=== PATIENT | female | born 1970 | race Caucasian/White ===

== ENCOUNTER 2017-11-16 07:44 | Outpatient (CLI) | payer OTHER | END 2017-11-16 07:49 | disposition home or self-care (01) | LOC: SONOGRAMA 07:44 | DX: E04.2 Nontoxic multinodular goiter (principal) ==

== ENCOUNTER 2021-02-17 07:13 | Outpatient (CLI) | payer OTHER | END 2021-02-17 07:31 | disposition home or self-care (01) | LOC: MRI 07:13 | PROVIDERS: ATTEND Psychiatry & Neurology Pain Medicine | DX: M54.5 Low back pain (principal); M54.10 Radiculopathy, site unspecified; R20.0 Anesthesia of skin; M25.562 Pain in left knee; F40.240 Claustrophobia | CPT/HCPCS: 72141; 72148; 73721 ==

== ENCOUNTER 2021-09-20 07:55 | Outpatient (CLI) | payer OTHER | END 2021-09-20 07:58 | disposition home or self-care (01) | LOC: SONOGRAMA 07:55 | PROVIDERS: ATTEND Pathology Anatomic Pathology & Clinical Pathology | DX: E04.1 Nontoxic single thyroid nodule (principal) ==

== ENCOUNTER 2021-09-24 07:21 | Outpatient (CLI) | payer OTHER | END 2021-09-24 08:00 | disposition home or self-care (01) | LOC: NUCLEAR 07:21 | DX: I20.9 Angina pectoris, unspecified (principal); I48.0 Paroxysmal atrial fibrillation; G47.33 Obstructive sleep apnea (adult) (pediatric); I70.218 Atherosclerosis of native arteries of extremities with intermittent claudication, other extremity; E66.01 Morbid (severe) obesity due to excess calories; E11.59 Type 2 diabetes mellitus with other circulatory complications; E03.9 Hypothyroidism, unspecified; M06.9 Rheumatoid arthritis, unspecified | CPT/HCPCS: 78452; 93017; A9500 ==